=== PATIENT | female | born 1980 | race Caucasian/White ===

== ENCOUNTER 2021-11-30 07:36 | Outpatient (CLI) | payer OTHER, SELFPAY ==
--- NOTE | 2021-11-30 07:43 | ECHO_ITS ---
Patient Info Name: Katja Gtz Age: 41 years : 1980 Gender: Female Ht: 68 in Wt: 155 lbs BSA: 1.84 m2 HR: 77 bpm BP: 119 / 75 mmHg Heart Rhythm: Sinus Rhythm Technical Quality: Fair Exam Date: 11/30/2021 7:50 AM Exam Location: [facility] Patient Status: Outpatient Admit Date: 11/30/2021 Staff Ordering Physician: Cheryl Muro NP Tourist Escort: Estelita Oscar RDCS Attending Provider: Thomas Stout DO Referring Physician: Jina STARKEY; Exam Type: CA echo doppler color flow Study Info Indications - shortness of breath Complete two-dimensional, color flow and Doppler transthoracic echocardiogram is performed. Summary 1. Complete two-dimensional, color flow and Doppler transthoracic echocardiogram is performed. 2. Left ventricular chamber dimension is normal. 3. Left ventricular systolic function is normal, estimated at 60-65%. 4. The left ventricular diastolic function is normal. 5. E/e' 4 is not elevated. 6. There is mild tricuspid valve regurgitation. 7. No pulmonary hypertension, estimated pulmonary arterial systolic pressure is 25 mmHg. Left Ventricle E/e' 4 is not elevated. Left ventricular chamber dimension is normal. Left ventricular systolic function is normal, estimated at 60-65%. The left ventricular diastolic function is normal. Right Ventricle Right ventricular systolic function is normal and with normal TAPSE 2.0 cm. Right ventricular chamber dimension is normal. Left Atria Left atrial chamber dimension is normal. Right Atria Right atrial chamber dimension is normal. Aortic Valve The aortic valve is trileaflet. There is no aortic valve stenosis. There is no aortic valve regurgitation. Pulmonic Valve There is no pulmonic regurgitation. Mitral Valve There is no mitral valve stenosis. There is no mitral valve regurgitation. Tricuspid Valve There is mild tricuspid valve regurgitation. No pulmonary hypertension, estimated pulmonary arterial systolic pressure is 25 mmHg. Pericardium/Pleural There is no pericardial effusion. Inferior Vena Cava Normal inferior vena cava with >50% collapse upon inspiration consistent with normal right atrial pressure, 5 mmHg. Aorta The aortic root size at the sinus of Valsalva is normal. Left Ventricular Outflow Tract Name Value Normal LVOT 2D LVOT Diameter 2.0 cm LVOT Doppler LVOT Peak Gradient 5 mmHg LVOT Mean Gradient 2 mmHg LVOT VTI 22 cm LVOT VTI/AV VTI Ratio 0.8 LVOT Stroke Volume 70 ml LVOT CO 4.6 l/min LVOT CI 2.5 l/min/m2 Pulmonic Valve Name Value Normal RVOT Doppler RVOT Peak Gradient 2 mmHg
--- NOTE | 2021-11-30 12:40 | WPDPFTINT ---
PFT Procedure Performed PFT Procedure Performed Spirometry with Pre/Post Bronchodilator Plethysmography (Lung Vol) Diffusing Cap (DLCO) Flow Vol Loop PFT Interpretation Lung volumes were measured with the body plethysmography method. Lung volumes are unremarkable. Spirometry showed normal expiratory flow rates and a normal FEV1 to FVC ratio of 81 %. Following administration of a bronchodilator there was no significant increase in expiratory flow rates. Lung diffusion capacity is within the normal range. The flow volume loop is unremarkable. Impression: Spirometry, lung volumes, and lung diffusion capacity all within the normal range.
== END 2021-11-30 07:37 | disposition home or self-care (01) ==
LOC: ANHCARD 07:40
PROVIDERS: PCP Internal Medicine; Visit Provider Internal Medicine
DX: R06.02 Shortness of breath (principal); I34.0 Nonrheumatic mitral (valve) insufficiency; I07.1 Rheumatic tricuspid insufficiency
CPT/HCPCS: 93306; 94060; 94726; 94729